=== PATIENT | female | born 1940 | race Native Hawaiian/Other Pacific Islander ===

== ENCOUNTER 2023-02-12 10:56 | Outpatient (CLI) | payer OTHER ==
[2023-02-12 11:33] LABS: POTASSIUM 3.9 mmol/L (3.6-5.2)
== END 2023-02-12 19:24 | disposition home or self-care (01) ==
LOC: LABW 10:56
PROVIDERS: ATTEND Nurse Practitioner Family
DX: I10 Essential (primary) hypertension (principal)
CPT/HCPCS: 36415; 80048